=== PATIENT | male | born 1955 | race Caucasian/White ===

== ENCOUNTER 2019-11-23 23:31 | Emergency (ER) | payer SELFPAY ==
[~2019-11-23] VITALS: Ht 170.2 cm; Wt 68.0 kg
--- NOTE | 2019-11-23 23:56 | NUR ---
PATIENT CAME TO ER BED 9 C/O CHEST PAIN AND HEADACHE WITH NO SPECIFIC REGION FOR ABOUT 1x WEEKS ALREADY. PATIENT STATES "IT HURTING ALL OVER" WHILE LOOKING AT HIS CELLPHONE. PATIENT STATES THAT HE ALSO HAD A SEIZURE EARLIER TODAY WHILE WALKING DOWN THE STREETS. AAOX4. NO SOB. BREATHING EVENLY AND UNLABORED ON ROOM AIR. CONNECTED TO MONITOR.
[2019-11-24] MEDS ORDERED: PHENYTOIN SODIUM IV 50 MG/ML VIAL ONE (00:28)
[2019-11-24] MEDS ORDERED: PHENYTOIN SODIUM IV 1,000 MG in IV NS 0.9% 100 ML IV ONE (00:30)
[2019-11-24] MEDS ORDERED: IV NS 0.9% 1,000 ML IV PRN (00:30)
[2019-11-24 00:36] LABS: BASOPHILS % (AUTO) 0.7 % (0.0-2.0); EOSINOPHILS % (AUTO) 9.2 % (0.0-6.0); HEMATOCRIT 42 % (39-51); HEMOGLOBIN 14.1 g/dL (13.5-17.5); LYMPHOCYTES # (AUTO) 1.1 /CMM (0.8-4.8); LYMPHOCYTES % (AUTO) 36.2 % (20.0-44.0); MEAN CORPUSCULAR HGB CONC 34 g/dl (31.0-36.0); MEAN CORPUSCULAR VOLUME 95 fL (80-96); MONOCYTES # (AUTO) 0.3 /CMM (0.1-1.30); NEUTROPHILS # (AUTO) 1.3 /CMM (1.8-8.9); NEUTROPHILS % (AUTO) 44.9 % (43.0-81.0); PLATELET COUNT (AUTO) 267 /CMM (150-450); RED BLOOD CELL COUNT(AUTO) 4.42 MIL/uL (4.5-6.0)
[2019-11-24 00:42] LABS: CALCIUM, SERUM 8.8 mg/dL (8.5-10.1); CARBON DIOXIDE 28 mmol/L (21-32); CHLORIDE 104 mmol/L (98-107); CREATININE 0.9 mg/dL (0.6-1.3); GLUCOSE 104 mg/dL (74-106); POTASSIUM 3.9 mmol/L (3.5-5.1); SODIUM SERUM 139 mmol/L (136-145); UREA NITROGEN, BLOOD 11 mg/dL (7-18)
[2019-11-24 02:12] VITALS: BP 133/89
--- NOTE | 2019-11-24 02:12 | NUR ---
IV removed. Catheter intact and site benign. Pressure and 4x4 applied to site. No bleeding noted.
--- NOTE | 2019-11-24 02:12 | NUR ---
Patient discharged to home in stable condition. Written and verbal after care instructions given. Patient verbalizes understanding of instruction.
== END 2019-11-24 02:12 | disposition home or self-care (01) ==
LOC: ER 23:36
DX: R07.89 Other chest pain (principal); R56.9 Unspecified convulsions; I25.2 Old myocardial infarction; Z88.6 Allergy status to analgesic agent
CPT/HCPCS: 36415; 71045; 80048; 84484; 85025; 93005; 96365; 99285; J1165 ×2; J7030 ×4